=== PATIENT | female | born 1970 | race Caucasian/White ===

== ENCOUNTER 2022-05-10 09:06 | Outpatient (CLI) | payer BC, SELFPAY ==
--- NOTE | 2022-05-10 09:15 | CRLHL7_ITS ---
For Patients: As a result of the Cures Act, medical imaging exams and procedure reports are released immediately into your electronic medical record. You may view this report before your referring provider. If you have questions, please contact your health care provider. BILATERAL SCREENING MAMMOGRAM WITH COMPUTER-AIDED DETECTION AND TOMOSYNTHESIS TECHNIQUE: CC and MLO views were obtained. These mammographic images have been obtained using full-field digital technique. These mammographic images were interpreted with the benefit of computer-aided detection. Breast Tomosynthesis was used in this interpretation. COMPARISON FILM: 02/22/2021, 03/13/2018, 05/05/2016. FINDINGS: There are scattered areas of fibroglandular density IMPRESSION: There is no radiographic evidence for malignancy. ASSESSMENT: BI-RADS Category 1: Negative RECOMMENDATION: Routine screening mammogram in 1 year. A lay language report of this examination will be provided to the patient. Dileep Brannon M.D. Diagnostic/Musculoskeletal Radiologist [email or web address] Manav Transcribed: 4:56 p.tara malik/Dictated by: Dileep Brannon MD @ 05/10/2022 12:03:00 PM (Electronically Signed)
== END 2022-05-10 09:07 | disposition home or self-care (01) ==
LOC: MAMMO 09:08
PROVIDERS: PCP Family Medicine; Visit Provider Family Medicine
DX: Z12.31 Encounter for screening mammogram for malignant neoplasm of breast (principal)
CPT/HCPCS: 77063; 77067

== ENCOUNTER 2022-08-22 09:59 | Day surgery (SDC) | payer BC, SELFPAY ==
[2022-08-22] MEDS: LACTATED RINGERS 1000 ML 1,000 ML 100 ML IV (09:55)
[2022-08-22 10:16] VITALS: BP 116/78; PULSE 89; RESP 16; TEMP 36.6; O2SAT 98; BMI 29.6
[2022-08-22] MEDS: SODIUM CHLORIDE 0.9 % (FLUSH) 10 ML SYRINGE IVF (10:31)
--- NOTE | 2022-08-22 11:30 | CRLHL7_ITS ---
For Patients: As a result of the Cures Act, medical imaging exams and procedure reports are released immediately into your electronic medical record. You may view this report before your referring provider. If you have questions, please contact your health care provider. Indication: LEFT bunion surgery Technique: Three fluoroscopic images of the left forefoot. Fluoroscopic time 9.9 seconds. IMPRESSION: Postop changes to the 2nd and 3rd metatarsal heads and to the 1st metatarsal. Dictated by Randolph Garcia MD @ 08/23/2022 9:26:11 AM (Electronically Signed)
[2022-08-22] MEDS: CEFAZOLIN 2 GM INJ IVP (11:40)
--- NOTE | 2022-08-22 12:07 | W.ANESCHARGE ---
Anesthesia Charges Start Date/Time Anesthesia Start Date: 08/22/22 Anesthesia Start Time: 11:29 Stop Date/Time Anesthesia Stop Date: 08/22/22 Anesthesia Stop Time: 14:11
--- NOTE | 2022-08-22 13:23 | W.ANESCHARGE ---
Anesthesia Charges Start Date/Time Anesthesia Start Date: 08/22/22 Anesthesia Start Time: 11:29 Stop Date/Time Anesthesia Stop Date: 08/22/22 Anesthesia Stop Time: 14:11
[2022-08-22 14:08] VITALS: BP 121/65; PULSE 66; RESP 16; TEMP 36.2; O2SAT 100
[2022-08-22 14:15] VITALS: BP 135/58; PULSE 60; RESP 16; O2SAT 99
[2022-08-22 14:30] VITALS: BP 147/78; PULSE 68; RESP 16; O2SAT 98
[2022-08-22 14:45] VITALS: BP 138/71; PULSE 69; RESP 16; O2SAT 98
--- NOTE | 2022-08-22 14:52 | SUR.PHASEII ---
Pt tolerated water, did not care for food.
--- NOTE | 2022-08-22 14:56 | SUR.PHASEII ---
Physical therapy came to [facility] to provide crutches and crutch training to patient.
--- NOTE | 2022-08-22 15:13 | SUR.PHASEII ---
Pt verbalized understanding of discharge instructions and readiness to be discharged home.
--- NOTE | 2022-08-23 06:34 | P.GSOP_ITS ---
Operative Note Date of procedure: 08/22/22 Pre-op diagnosis: 1. Hallux valgus with bunion deformity left 2. Metatarsalgia left 3. Toe deformity digits 2 and 3 left Post-op diagnosis: 1. Hallux valgus with bunion deformity left 2. Metatarsalgia left 3. Toe deformity digits 2 and 3 left Type of Procedure: 1. Modified Edin bunionectomy left 2. Tiffanie osteotomy 2nd metatarsal left 3. Tiffanie osteotomy 3rd metatarsal left 4. 3rd digit flexor tenotomy left Indications: Patient is having ongoing pain due to bunion deformity and metatarsal pain. There is deformity of her 2nd 3rd toes as well. She has elected to have surgical correction. I reviewed the procedure, recovery, expectations and potential complications. These include but not limited to: Poor wound healing, infection, under correction, over correction, hardware irritation, nonunion, delayed union, malunion, recurrence, potentially future surgery, deep venous thrombosis, pulmonary embolism and possible . All questions answered. Written consent obtained. Procedure Description: After discussing the risks and benefits of the procedure, the patient signed informed consent.? The operative site was marked and the patient was brought to the operating room and placed on the operating table in supine position.? Care was taken to pad the patient's pressure points.?? The patient was then given sedation by anesthesia.?? 30 mL of 0.5% Marcaine plain was injected into the left foot. The operative site was then prepped and draped in the usual sterile fashion.? A time-out was then performed. Left foot exsanguinated the ankle tourniquet inflated to 250 mm Hg. Dorsomedial curvilinear incision was made over the 1st metatarsophalangeal j oint. The incision was carried down through skin subcutaneous tissues. T- shaped joint capsule incision was made. Capsular tissues reflected away from the 1st metatarsal head. Sagittal saw was then used to resect the enlarged medial bony prominence of the 1st metatarsal head. Blunt dissection carried down in the 1st intermetatarsal space and a standard lateral release was performed. Fibular sesamoid was significantly displaced laterally and sitting within the intermetatarsal space. In this position it was not reducible and would block repositioning with her osteotomy. In light of this the fibular sesamoid was excised. Guide pin was placed in the 1st metatarsal head and position checked with C-arm. A long dorsal arm metatarsal osteotomy was then made. Guide pin was removed and the capital fragment was transposed laterally. Once correction was made the osteotomy was fixated with two 3.0 mm cannulated screws. Using a sagittal saw and rotary bur the 1st metatarsal head was samantha deled. C-arm confirmed excellent correction. Wound was irrigated with normal sterile saline. The capsular tissues were revised and closed with 3-0 Vicryl. Subcutaneous tissues reapproximated 4-0 Monocryl and skin closed with 4-0 Prolene. Linear incision was made over the 2nd metatarsophalangeal joint. The incision was carried down through skin subcutaneous tissues. A Z-lengthening was perfo rmed on the extensor tendon. Joint capsule was then incised with the lateral capsule being released completely lateral capsule was also released but will be tightened following osteotomy. A Tiffanie osteotomy was performed and the capital fragment transposed proximally 3 mm. This then fixated with a 3.0 mm twist off screw. Dorsal overhang was resected. Second toe dropped into a much more manageable position. Wound was irrigated normal sterile saline. The medial joint capsule was then tightened with 2-0 FiberWire holding the MPJ reduced into anatomic alignment. The dorsal joint capsule was repaired with 4-0 Vicryl and the lateral capsule left open. Subcutaneous tissues reapproximated with 4-0 Monocryl and skin closed with 4-0 Prolene. Second toe now sat in excellent position. Linear incision was made over the 3rd metatarsophalangeal joint. The incision was carried down through skin subcutaneous tissues. A Z-lengthening was performed on the extensor tendon. Joint capsule was then incised with the lateral capsule being released completely lateral capsule was also released but will be tightened following osteotomy. A Tiffanie osteotomy was performed and the capital fragment transposed proximally 3 mm. This then fixated with a 3.0 mm twist off screw. Dorsal overhang was resected. Third toe dropped into a much more manageable position. Wound was irrigated normal sterile saline. The medial joint capsule was then tightened with 2-0 FiberWire holding the MPJ reduced into anatomic alignment. The dorsal joint capsule was repaired with 4-0 Vicryl and the lateral capsule left open. Subcutaneous tissues reapproximated with 4-0 Monocryl and skin closed with 4-0 Prolene. Third toe now sat in excellent position. Third toe did require flexor tenotomy. [address] [place] blade u sed to make a stab incision plantarly just distal to the PIPJ and flexor tendon transected. Sterile dressings were then applied. Tourniquet was released and normal capillary fill time returned to all digits. ? The patient was then woken and transported to the recovery area in stable condition. The patient tolerated the procedure well. She was placed in well- padded cam boot. She is heel weight-bearing crutch assistance. She is given oxycodone for pain. She will follow up in clinic in 2 days. She will start aspirin therapy tomorrow. Both written and verbal postop instructions given. Findings: Complications: None apparent Implants: Sheridan Fixos 3.0 mm cannulated screws x2, Sheridan twist off screws times 2 Anesthesia: MAC and local Surgeon: Nnamdi Bello DPM Estimated blood loss (mL): 5 Condition: stable Disposition: same day
== END 2022-08-22 15:12 | disposition home or self-care (01) ==
PROVIDERS: PCP Family Medicine; Visit Provider Podiatrist
PROC: (CPT 28292; principal; 2022-08-22 11:30)
PROC: (CPT 28297; 2022-08-22 11:30)
PROC: (CPT 28285; 2022-08-22 11:30)
DX: M20.12 Hallux valgus (acquired), left foot (principal); M21.612 Bunion of left foot; M20.62 Acquired deformities of toe(s), unspecified, left foot; M77.42 Metatarsalgia, left foot
CPT/HCPCS: 28297; 28308; 28313; 1480; 73620; 76000; 97116; 97161; C1713; J0690; J2250; J2405; J2704; J3010; J7120

== ENCOUNTER 2023-06-01 09:14 | Outpatient (CLI) | payer BC, SELFPAY ==
--- NOTE | 2023-06-01 09:15 | CRLHL7_ITS ---
For Patients: As a result of the Century Cures Act, medical imaging exams and procedure reports are released immediately into your electronic medical record. You may view this report before your referring provider. If you have questions, please contact your health care provider. BILATERAL SCREENING MAMMOGRAM WITH COMPUTER-AIDED DETECTION AND TOMOSYNTHESIS TECHNIQUE: CC and MLO views were obtained. These mammographic images have been obtained using full-field digital technique. These mammographic images were interpreted with the benefit of computer-aided detection. Breast Tomosynthesis was used in this interpretation. COMPARISON FILM: 05/10/22, 02/22/21, 03/13/18. FINDINGS: There are scattered areas of fibroglandular density IMPRESSION: There is no radiographic evidence for malignancy. ASSESSMENT: BI-RADS Category 1: Negative RECOMMENDATION: Routine screening mammogram in 1 year. A lay language report of this examination will be provided to the patient. Randolph Garcia M.D. Diagnostic Radiologist [email or web address] IRA/Dictated by: Randolph Garcia MD @ 06/01/2023 11:01:00 AM (Electronically Signed)
== END 2023-06-01 09:15 | disposition home or self-care (01) ==
LOC: MAMMO 09:15
PROVIDERS: PCP Family Medicine; Visit Provider Family Medicine
DX: Z12.31 Encounter for screening mammogram for malignant neoplasm of breast (principal)
CPT/HCPCS: 77063; 77067

== ENCOUNTER 2023-09-18 17:13 | Outpatient (CLI) | payer BC, SELFPAY ==
--- NOTE | 2023-09-18 17:30 | MR_ITS ---
[facility] [address] [facility] [address] Phone:?[phone] Fax:?[phone] Referring Physician Information: Maynor Kohler M.D. [address] [facility] [address] Phone:?[phone] Fax:?[phone] Patient:Geovanna Mayes D.O.B:?1970 Sex:?Female Phone:? [facility] MRN:?[id number] Exam Date:?09/18/2023 EXAM: MRI of the LEFT KNEE, without contrast CLINICAL INFORMATION: Female, 53 years old, with bilateral knee pain. INDICATION: Evaluate for lateral meniscal tear. PRIOR SURGERY: None reported. PLAIN FILMS: Knee radiographs dated 09/12/2023. COMPARISONS: No prior MRIs available. TECHNICAL INFORMATION: Using a 1.5T MR scanner and a localizing surface coil: sagittals: PD, PDFS coronals: PD, STIR axials: PD, T2FS SEDATION: None CONTRAST: None FINDINGS: Knee joint: Effusion: Moderate-marked left knee effusion, with synovitis. Popliteal cyst: Iukbd-vatbco-jxcgm, inferiorly leaking/ruptured Greco cyst (axial T2FS series 4 images 11-30). Loose bodies: None. Subcutaneous and extra-articular soft tissues: Mild anterior subcutaneous soft tissue swelling seen from the patella to the tibial tubercle. Ligaments: ACL: Moderate-marked thickening and abnormal signal throughout the ACL, without ACL tear (sagittal PDFS series 6 image 16). PCL: Intact PCL, without acute or chronic injury. MCL: Intact MCL superficial and deep layers, without injury. LCL: Intact LCL, without injury. Posterolateral corner: No posterolateral corner soft tissue injury. Popliteus, biceps femoris, iliotibial band, popliteofibular ligament and lateral gastrocnemius are intact. Posteromedial corner: No posteromedial corner soft tissue injury. Semimembranosus, pes anserine tendons and posterior oblique ligament are without injury, tendinopathy or bursitis. Extensor mechanism: Patellar tendon: Intact, without tendinopathy. Quadriceps tendon: Intact, without tendinopathy. Retinacula: Medial and lateral retinacula are intact. Fat pads: Unremarkable infrapatellar Hoffa's, quadriceps and prefemoral fat pads. Medial compartment: Medial meniscus: Abnormal signal and irregularity is present throughout the posterior meniscocapsular junction, without discrete tear (sagittal PDFS series 6 images 8-13). No meniscal extrusion or parameniscal cyst. Medial femoral condyle: Broad-based grade II chondromalacia of the central surface with a 5 x 6 mm partial-thickness chondral defect (coronal STIR series 8 image 18 and sagittal PDFS series 6 image 12). Medial tibial plateau: No chondromalacia or osteochondral abnormality. Lateral compartment: Lateral meniscus: No articular surface, meniscosynovial junction or root tear. No displacement, extrusion or parameniscal cyst. Lateral femoral condyle & tibial plateau: Broad-based grade II/III chondromalacia throughout the central, weightbearing aspect of the lateral compartment with an 8 x 8 mm partial-thickness chondral defect of the lateral femoral condyle (sagittal PDFS series 6 image 21 and coronal STIR series 8 image 19). Patellofemoral joint: Patella: Broad-based grade II/III chondromalacia of the lateral facet and median ridge, with minimal marginal osteophytosis. Trochlea: Broad-based grade II/III chondromalacia of the medial facet and central sulcus, with mild marginal osteophytosis. Proximal tibiofibular joint: Unremarkable, without evidence of ligament sprain injury, joint effusion or adjacent marrow edema. Bones: No stress/occult fractures or other marrow edema/pathology. IMPRESSION: 1. 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 2. Mild chondromalacia of the medial femoral condyle with an 8 x 5 mm partial- thickness chondral defect of the medial femoral condyle. 3. Moderate marked knee joint effusion with synovitis and a rzolt-gwltfo-ugtfu, inferiorly leaking/ruptured Greco cyst. 4. Moderate-marked mucinous degeneration of the ACL, without ACL tear. 5. Posterior meniscocapsular junction sprain of the medial meniscus. No medial or lateral meniscal tear. 6. No PCL, MCL, or LCL sprain/tear. BC Electronically signed on 09/19/2023 11:08:00 AM by Adrian Boogie M.D.
--- NOTE | 2023-09-18 18:15 | MR_ITS ---
[facility] [address] [facility] [address] Phone:?[phone] Fax:?[phone] Referring Physician Information: Maynor Kohler M.D. [address] [facility] [address] Phone:?[phone] Fax:?[phone] Patient:Geovanna Mayes D.O.B:?1970 Sex:?Female Phone:? [facility] MRN:?[id number] Exam Date:?09/18/2023 EXAM: MRI of the RIGHT KNEE, without contrast CLINICAL INFORMATION: Female, 53 years old, with bilateral knee pain. INDICATION: Evaluate for lateral meniscal tear. PRIOR SURGERY: None reported. PLAIN FILMS: Knee radiographs dated 09/12/2023. COMPARISONS: No prior MRIs available. TECHNICAL INFORMATION: Using a 1.5T MR scanner and a localizing surface coil: sagittals: PD, PDFS coronals: PD, STIR axials: PD, T2FS SEDATION: None CONTRAST: None FINDINGS: Knee joint: Effusion: Trace-small right knee effusion. Popliteal cyst: Tiny, unruptured popliteal (Greco's) cyst. Loose bodies: Approximately 3 x 4 x 5 mm intra-articular body is present in the posterolateral aspect of the medial compartment (axial T2FS series 4 image 22 and sagittal PDFS series 6 image 18). Subcutaneous and extra-articular soft tissues: Unremarkable. Ligaments: ACL: Intact ACL anteromedial and posterolateral bundles, without sprain or tear. PCL: Intact PCL, without acute or chronic injury. MCL: Intact MCL superficial and deep layers, without injury. LCL: Intact LCL, without injury. Posterolateral corner: No posterolateral corner soft tissue injury. Popliteus, biceps femoris, iliotibial band, popliteofibular ligament and lateral gastrocnemius are intact. Posteromedial corner: No posteromedial corner soft tissue injury. Semimembranosus, pes anserine tendons and posterior oblique ligament are without injury, tendinopathy or bursitis. Extensor mechanism: Patellar tendon: Approximately 1.7 x 0.4 x 1.1 cm corticated osseous density is present along the deep surface of the distal patellar tendon, with mild tendinopathy. No patellar tendon tear. Quadriceps tendon: Intact, without tendinopathy. Retinacula: Medial and lateral retinacula are intact. Fat pads: Unremarkable infrapatellar Hoffa's, quadriceps and prefemoral fat pads. Medial compartment: Medial meniscus: No articular surface, meniscosynovial junction or root tear. No displacement, extrusion or parameniscal cyst. Medial femoral condyle: Approximately 6 x 5 mm partial-thickness chondral defect of the central surface superimposed upon grade II chondromalacia (coronal STIR series 8 image 17 and sagittal PDFS series 6 image 22). Medial tibial plateau: No chondromalacia or osteochondral abnormality. Lateral compartment: Lateral meniscus: No articular surface, meniscosynovial junction or root tear. No displacement, extrusion or parameniscal cyst. Lateral femoral condyle & tibial plateau: Broad-based grade III chondromalacia throughout the central, weightbearing aspect of the lateral compartment, with a 2.3 x 1.0 cm full-thickness chondral defects of the lateral femoral condyle and tibial plateau (sagittal PD series 5 image 11 and coronal STIR series 8 image 19). Mild-moderate reactive osseous changes and mild marginal osteophytosis is present. Patellofemoral joint: Patella: Generalized grade II/III chondromalacia of the patella, with minimal marginal osteophytosis. Trochlea: Generalized mild grade II chondromalacia of the trochlea, without reactive osseous changes. Proximal tibiofibular joint: Unremarkable, without evidence of ligament sprain injury, joint effusion or adjacent marrow edema. Bones: No stress/occult fractures or other marrow edema/pathology. IMPRESSION: 1. Moderate osteoarthritis of the lateral compartment with full-thickness chondral defects of both the lateral femoral condyle & tibial plateau. 2. Mild osteoarthritis of the patellofemoral compartment. 3. Trace-small knee joint effusion with a tiny, unruptured popliteal (Greco's) cyst and 3 x 4 x 5 mm intra-articular body. 4. Chronic sequela of Julieta-Schlatter's disease. 5. Grade II chondromalacia of the medial femoral condyle with a 6 x 5 mm partial-thickness chondral defect. 6. No cruciate or collateral ligament sprain/tear. 7. No medial or lateral meniscal tear. BC Electronically signed on 09/19/2023 10:51:00 AM by Adrian Boogie M.D.
== END 2023-09-18 17:14 | disposition home or self-care (01) ==
LOC: MRI 17:13
PROVIDERS: PCP Family Medicine; Visit Provider Orthopaedic Surgery Sports Medicine
DX: M25.562 Pain in left knee (principal); M17.12 Unilateral primary osteoarthritis, left knee; M94.262 Chondromalacia, left knee; M25.462 Effusion, left knee; M25.561 Pain in right knee; M17.11 Unilateral primary osteoarthritis, right knee; M25.461 Effusion, right knee; M94.261 Chondromalacia, right knee; M23.91 Unspecified internal derangement of right knee
CPT/HCPCS: 73721

== ENCOUNTER 2024-06-18 19:14 | Outpatient (CLI) | payer BC, SELFPAY ==
--- OUTSIDE RECORDS SUMMARY | 2024-06-18 19:17 | XMS_ITS | Clinical Summary ---
Author Organization [facility] Address [address] [place] [address] Care Team Providers Care Manager Delivery Name Role Phone Unavailable Primary Care Provider Unavailabl e Source Comments You are receiving this document as you are listed as the primary care provider,follow-up provider, or the patient has been referred to you for consultation.This is in compliance with the Medicare andMedicaid EHR Incentive Program,which states Providers who transition their patient to another setting of careor provider of care or refers their patient to another provider of care shouldprovide summary care record for each transition of care or referral. On license of [facility] Allergies Active Allergy Reactions Criticality Noted Date Comments Morphine Itching 08/30/2018 Medications Medication Sig Dispensed Refills Start Date End Date Status Meloxicam (MOBIC) 15 MG tablet Take 1 Tablet by mouth daily. 08/30/2018 Active ibuprofen (MOTRIN) 800 MG tablet Take 1 Tablet by mouth daily as needed for Pain. 08/30/2018 Active Multiple Minerals-Vitamins ([id number]-MYE C-D3) TABS 09/21/2018 Active omeprazole (PRILOSEC) 10 MG capsule Take 1 Capsule by mouth daily. Take 1 hour before a meal. 90 Capsule 3 09/21/2018 Active diclofenac (VOLTAREN) 1 % gelIndications:Primary osteoarthritis of both knees,Chronic pain syndrome Apply 4 g to skin 4 times a day. 300 g 11 09/21/2018 Active Active Problems No known active problems Social History Tobacco Use Types Packs/Day Years Used Date Smoking Tobacco: Never Assessed Sex and Gender Information Value Date Recorded Sex Assigned at Not on file Gender Identity Not on file Sexual Orientation Not on file Last Filed Vital Signs Vital Sign Reading Time Taken Comments Blood Pressure 182/95 09/21/2018 10:02 AM CONTINUITY PERSON Pulse 79 09/21/2018 10:02 AM CONTINUITY PERSON Temperature - - Respiratory Rate - - Oxygen Saturation - - Inhaled Oxygen Concentration - - Weight 88.9 kg (196 lb) 09/21/2018 10:02 AM CONTINUITY PERSON Height 164 cm (5' 4.57) 09/21/2018 10:02 AM CONTINUITY PERSON Body Mass Index 33.06 09/21/2018 10:02 AM CONTINUITY PERSON Plan of Treatment Health Maintenance Due Date Last Done Comments Cervical Cancer Screening Due 1970 Colon Cancer Screening Plan Due 1970 Hep C Screening (Preventive Services) 1970 Mammogram 1970 HIV Screening (Preventive Services) 1984 Adult Preventive Visit 01/21/1986 HepB (1) 01/21/1987 Cholesterol 01/21/2013 Zoster/Shingles (1 of 2) 01/21/2018 DTaP/Tdap/Td (2 - Tdap) 03/06/2022 03/06/2012 COVID-19 Vaccine (3 - 2023-2 5 season) 2024 02/12/2021, 2021 Influenza (#1) 2024 HepA Aged Out No longer eligi ble based on patient's age to complete this topic Hib Aged Out No longer eligi ble based on patient's age to complete this topic IPV (Polio) Aged Out No longer eligi ble based on patient's age to complete this topic Infant RSV Aged Out No longer eligi ble based on patient's age to complete this topic MCV4 Aged Out No longer eligi ble based on patient's age to complete this topic Pneumococcal Aged Out No longer eligi ble based on patient's age to complete this topic
--- OUTSIDE RECORDS SUMMARY | 2024-06-18 19:17 | XMS_ITS | Clinical Summary ---
Author Organization [facility] Address [place], [place] [address] Care Team Providers Care It Security Consultant Name Role Phone Staci Henley MD Primary Care Provider Allergies Active Allergy Reactions Criticality Noted Date Comments Morphine Other - Describe In Comment Field 02/22/2012 Feels a burning sensation Medications Medication Sig Dispensed Refills Start Date End Date Status latanoprost (XALATAN) 0.005 % ophthalmic solution Place into both eyes. 2.5 mL 07/28/2022 Active fysanzcy-whv-mwhes acid-vit K (Multi For Her 50 Plus) 400-80 mcg cap Take by mouth. Active amitriptyline (ELAVIL) 10 mg tabletIndications:Fib romyalgia Take 1 Tablet (10 mg) by mouth once daily. 90 Tablet 3 08/24/2023 Active lisinopriL (PRINIVIL; ZESTRIL) 20 mg tabletIndications:Ess ential hypertension Take 1 Tablet (20 mg) by mouth once daily. 90 Tablet 3 08/24/2023 Active venlafaxine (EFFEXOR XR) 150 mg Extended-Release capsuleIndications:Fi bromyalgia Take 1 Capsule (150 mg) by mouth once daily with evening meal. 90 Capsule 3 08/24/2023 Active fluticasone (50 mcg per actuation) nasal solution (FLONASE)Indications: ETD (Eustachian tube dysfunction), bilateral Inhale 2 Sprays into affected nostril(s) once daily. 16 g 2 03/27/2024 Active Active Problems Problem Noted Date Diagnosed Date Chronic pain of both knees 02/16/2023 Overview (02/16/2023): Approximately 2012: had bilateral knee cortisone injections with 6 months of good benefit. Feb 2023: bilateral knee cortisone injections by Dr. Diaz. Essential hypertension 04/05/2021 Lymphocytic colitis 03/18/2021 Overview (03/18/2021): Colonoscopy 03/2021 lymphocytic colitis, repeat in 10 years Fibromyalgia 12/15/2020 Terminal insomnia 12/15/2020 Encounters Date Type Department Care Team Description 03/27/2024 10:30 AM CDT Office Visit [address] [id number] Bria Zee PA Consult (Sensorineural hearing loss (SNHL),) 03/27/2024 Travel from Last 3 Months Immunizations Name Administration Dates Next Due COVID-19 vaccine ([employer] 30mcg/0.3mL) P F, MDV 02/12/2021,2021 Tdap 07/28/2022,03/06/2012 Tuberculin (PPD) 07/22/2014 Zoster (Shingrix-RZV, recombinant) 01/01/2024, Family History Medical History Relation Name Comments Heart attack Brother 1 stent Hypertension Brother 1 Other Brother 2 mva Alzheimer's disease Father Heart Disease Father bypass Hyperlipidemia Father Hypertension Father Hypertension Mother Thyroid Disease Mother Heart attack Other puncle Anesthesia Problem No Family History Relation Name Status Comments Brother 1 Alive Brother 2 Father Mother Alive Other puncle Alive Social History Tobacco Use Types Packs/Day Years Used Date Smoking Tobacco: Never Smokeless Tobacco: Never Tobacco Cessation:Counseling Given: Yes Alcohol Use Standard Drinks/Week Comments No 0 (1 standard drink = 0.6 oz pur e alcohol) PHQ-2 Answer Date Recorded PHQ-2 TOTAL SCORE 0 08/24/2023 Social Connections Answer Date Recorded Frequency of Communication with Friends and Fami ly Not on file 03/27/2024 Financial Resource Strain Answer Date R ecorded Difficulty of Paying Living Expenses 3 03/23/2023 Difficulty of Paying Living Expenses Not on file 03/23/2023 Food Insecurity Answer Date Recorded Worried About Running Out of Food in the Last Ye ar 1 03/23/2023 Transportation Needs Answer Date Record ed Lack of Transportation (Medical) 1 03/23/2023 Housing Stability Answer Date Recorded Unable to Pay for Housing in the Last Year 1 03/23/2023 Sex and Gender Information Value Date Recorded Sex Assigned at Not on file Gender Identity Not on file Sexual Orientation Not on file Obstetrics History Para Term AB IAB SAB Ectopic Multiple Livin g Live Births 1 Date Outcome GA Total Labor Labor/2nd/3rd Weight Sex Type Anes PTL Laure A1 A5 Name Clin 1990 Term M C-Sect ion Jagjit Last Filed Vital Signs Vital Sign Reading Time Taken Comments Blood Pressure 124/84 03/27/2024 10:35 AM CDT Pulse 72 03/27/2024 10:35 AM CDT Temperature 37.6 C (99.7 F) 08/24/2022 11:24 AM [facility] Respiratory Rate 12 03/27/2024 10:35 AM CDT Oxygen Saturation 98% 11/13/2023 3:35 PM CDT Inhaled Oxygen Concentration - - Weight 88.3 kg (194 lb 9.6 oz) 11/13/2023 3:35 P M CDT Height 165.1 cm (5' 5) 08/24/2023 8:11 AM [facility] Body Mass Index 32.38 08/24/2023 8:11 AM [facility] Plan of Treatment Health Maintenance Due Date Last Done Comments COVID-19 vaccine series ( season) 2024 02/12/2021, 2021 Influenza for age 50-64 03/17/2024 Mammogram for age 45-75 06/01/2024 06/01/20 23, 05/10/2022, 02/22/2021, Additional history exists BMI (ht and wt on same day) for age 18+ 08/24/2024 08/24/2023, 01/23/2023, 07/28/2022, Additional history exists Depression screening for age 12+ 08/24/2024 08/24/2023, 12/17/2020, 12/15/2020 Lipids for age 45-75 04/05/2026 04/05/2021, 12/31/2020, 05/12/2015, Additional history exists Colonoscopy through age 75 03/11/203103/11, 03/11/2021, 03/11/2021 Tetanus booster 07/28/2032 07/28/2022, 02/15, 03/06/2012 HIV for age 15-65 Completed 07/28/2022 Hepatitis C screening for age 18-79 Completed 07/28/2022 Tdap Completed 07/28/2022, 03/06/2012 Zoster (shingles) series for age 50+ Completed 01/01/2024, 08/24/2023 Pneumococcal series for age 6-64 Aged Out No longer eligible based on patient's age to complete this topic Procedures Procedure Name Priority Date/Time Associated Diagnosis Comments SCAN-MAMMOGRAPHY REPORT 06/01/2023 12:00 AM [facility] LC HIV-1/O/2, 4TH GENERATION Routine 07/28/2022 10:22 AM [facility] Screening for HIV (human immunodeficiency virus) LC HCV ANTIBODY RFX TO QUANT PCR Routine 07/28/2022 10:22 AM [facility] Need for hepatitis C screening test LIPID PANEL W REFLEX MEASURED LDL Routine 04/05/2021 10:21 AM CDT Screening, lipid COLONOSCOPY DIAGNOSTIC Routine 03/11/2021 8:39 AM CDT Chronic diarrhea from Last 3 Months or Most Recently Relevant to Health Maintenance Results * SCAN-MAMMOGRAPHY REPORT (06/01/2023 12:00 AM [facility]) Anatomical Region Laterality Modality Other Scanner OTHER * LC HCV ANTIBODY RFX TO QUANT PCR (07/28/2022 10:22 AM [facility]) HCV Ab <0.1 0.0 - 0.9 s/co ratio 07/30/2022 3:08 PM [facility] ([facility]) Blood BLOOD SPECIMEN / Unknown Venipuncture / Unknown 07/28/2022 10:22 AM [facility] 07/28/2022 10:25 AM [facility] Narrative [facility] ([facility]) - 07/30/2022 3:08 PM [facility] Performed at: [address] [place] [id number] License Clerk: Robbin Keyes MD, Phone: [phone] Staci Henley MD LABORATORY Performing Organization Address City/[facility]/ZIP Co de Phone Number [facility] ([facility]) [address] [place] [address], * LC HIV-1/O/2, 4TH GENERATION (07/28/2022 10:22 AM [facility]) HIV Scr 4th Gen Non Reactive Non Reactive 07/30/2022 3:08 PM [facility] ([facility]) Comment: HIV Negative HIV-1/HIV-2 antibodies and HIV-1 p24 antigen were NOT detected. There is no laboratory evidence of HIV infection. Blood BLOOD SPECIMEN / Unknown Venipuncture / Unknown 07/28/2022 10:22 AM [facility] 07/28/2022 10:25 AM [facility] Narrative [facility] ([facility]) - 07/30/2022 3:08 PM [facility] Performed at: [address] [place] [id number] License Clerk: Robbin Keyes MD, Phone: [phone] Staci Henley MD LABORATORY Performing Organization Address [facility]/ZIP Co de Phone Number [facility] ([facility]) [address] [place] [address] * LIPID PANEL W REFLEX MEASURED LDL (04/05/2021 10:21 AM CDT) CHOLESTEROL,TOTAL 194 100 - 199 mg/dL 04/05/2021 5:08 PM CDT [facility] TRIGLYCERIDES 79 <150 mg/dL 04/05/2021 5:08 PM CDT [facility] HDL CHOLESTEROL 54 >40 mg/dL 5:08 PM CDT [facility] NON-HDL CHOLESTEROL 140 <145 mg/dl 04/05/2021 5:08 PM CDT [facility] CHOL/HDL RATIO 3.59 <4.50 04/05/2021 5:08 PM CDT [facility] LDL CHOLESTEROL 124 <=130 mg/dL 04/05/2021 5:08 PM CDT [facility] VLDL CHOLESTEROL 16 <=30 mg/dL 04/05/2021 5:08 PM CDT [facility] PROVIDER ORDERED STATUS RANDOM 04/05/2021 5:08 PM CDT [facility] Blood BLOOD SPECIMEN / Unknown Venipuncture / Unknown 04/05/2021 10:21 AM CDT 04/05/2021 10:21 AM CDT Jenny Magana MD CHEMISTR[facility] [address] [place] [address], [place] * COLONOSCOPY (03/11/2021 8:47 AM CDT) 03/11/2021 8:47 AM CDT Narrative Transcriptions Jame Bey MD - 03/11/2021 10:09 AM CDT Patient Name: Suri Younger Procedure Date: 03/11/2021 Gender: Female Date of : 1970 Admit Type: Outpatient Procedure: Colonoscopy Proceduralist: Jame Bey MD , Khloe Roque, RN(Nurse) Referring MD: Jame Bey Indications/Pre-Op Diagnosis: Clinically significant diarrhea ofunexplained origin, This is the patient's firstcolonoscopy Medications: Fentanyl 100 micrograms IV, Midazolam 4 mgIV, The level of sedation administered wasmoderate Procedure Description: The patient had risks, benefits and alternatives explained to andgave informed consent. The patient had a stable cardiopulmonary status and judged an adequate candidate for conscious sedation. The Colonoscope was passed through the anus and advanced to 6 cm into the ileum. The colonoscopy was performed without difficulty. Thepatient tolerated the procedure well. The quality of the bowel preparationwas good. The terminal ileum, ileocecal valve, appendiceal orifice, and rectum were photographed. Complications: No immediate complications. Estimated Blood Loss & Specimen: Estimated blood loss: none. Specimen collected - Yes and sent to Laboratory Findings: The perianal and digital rectal examinations were normal. The terminal ileum appeared normal. The entire examined colon appeared normal on direct and retroflexion views. Biopsies for histology were taken with a cold forceps from the entire colon for evaluation of microscopic colitis. Impressions/Post-Op Diagnosis: - The examined portion of the ileum was normal. - The entire examined colon is normal on direct and retroflexionviews. - No specimens collected. Recommendation: - Patient has a contact number available for emergencies. The signsand symptoms of potential delayed complications were discussed with the patient. Return to normal activities tomorrow. Written discharge instructions were provided to the patient. - Resume previous diet. - Continue present medications. - Await pathology results. - Repeat colonoscopy is recommended. The colonoscopy date will be determined after pathology results from today's exam become available for review. Moderate Sedation: Moderate (conscious) sedation was administered by the endoscopy nurse and supervised by the endoscopist. The following parameters were monitored: oxygen saturation, heart rate, respiratory rate, blood pressure, adequacy of pulmonary ventilation and reponse to care. Please refer to the patient's medical record flowsheets and nursing notes for moderate sedation details. Total physician intraservice time was 21 minutes. Jame Bey MD 03/11/2021 10:09:22 AM This report has been signed electronically. Note Initiated On: 03/11/2021 8:47 AM Procedure Code(s): --- Professional --- 92061, Colonoscopy, flexible; with biopsy, single or multiple Diagnosis Code(s): --- Professional --- R19.7, Diarrhea, unspecified CPT copyright 2020 [employer]. All rights reserved. The codes documented in this report are preliminary and upon paint supervisor reviewmay be revised to meet current compliance requirements. Scope In: 9:41:32 AM Scope Withdrawal Time 0 hours 8 minutes 32 seconds Scope Out: 10:01:11 AM Jame Bey MD PROCEDURE ORD from Last 3 Months or Most Recently Relevant to Health Maintenance Care Teams It Security Consultant Relationship Specialty Start Date End Date Staci Henley MD [address] [place] [address] PCP - General Family Practice 09/16/21
--- NOTE | 2024-06-18 19:20 | CRLHL7_ITS ---
For Patients: As a result of the Century Cures Act, medical imaging exams and procedure reports are released immediately into your electronic medical record. You may view this report before your referring provider. If you have questions, please contact your health care provider. BILATERAL DIGITAL SCREENING MAMMOGRAM WITH COMPUTER-AIDED DETECTION AND TOMOSYNTHESIS CLINICAL HISTORY: Routine screening exam. COMPARISON: 06/01/23, 05/10/22, 02/22/21. TECHNIQUE: Digital mammogram in CC and MLO projections including computer-aided detection (CAD). Tomosynthesis was used in this interpretation. BREAST COMPOSITION: There are scattered areas of fibroglandular density. FINDINGS: RIGHT Breast: No suspicious findings. LEFT Breast: Focal asymmetric density lateral LEFT breast 9 cm from the nipple. IMPRESSION: LEFT breast asymmetry/mass. RECOMMENDATIONS: Additional mammographic views of the LEFT breast including 3D spot compression CC/MLO. LEFT breast ultrasound may also be required. The [facility] will contact the patient for follow-up. A lay language report of this examination will be provided to the patient. BI-RADS Category 0: Incomplete: Need Additional Imaging Evaluation Dictated by Randolph Garcia MD @ 06/19/2024 12:51:01 PM /sp SP/Dictated by: Randolph Garcia MD @ 06/19/2024 12:51:00 PM (Electronically Signed)
== END 2024-06-18 19:15 | disposition home or self-care (01) ==
LOC: MAMMO 19:16
PROVIDERS: PCP Family Medicine; Visit Provider Family Medicine
DX: Z12.31 Encounter for screening mammogram for malignant neoplasm of breast (principal); N63.20 Unspecified lump in the left breast, unspecified quadrant
CPT/HCPCS: 77063; 77067

== ENCOUNTER 2024-07-02 10:29 | Outpatient (CLI) | payer BC, SELFPAY ==
--- NOTE | 2024-07-02 10:45 | CRLHL7_ITS ---
For Patients: As a result of the Cures Act, medical imaging exams and procedure reports are released immediately into your electronic medical record. You may view this report before your referring provider. If you have questions, please contact your health care provider. LEFT DIAGNOSTIC MAMMOGRAM WITH COMPUTER-AIDED DETECTION AND TOMOSYNTHESIS LEFT BREAST ULTRASOUND CLINICAL HISTORY: LEFT breast mass/asymmetry. COMPARISON: 06/18/2024. TECHNIQUE: Digital LEFT mammogram in two projections with computer-aided detection. Real-time ultrasound imaging of LEFT breast with imaging documentation. Scanning was performed by both the technologist and the radiologist. BREAST COMPOSITION: There are scattered areas of fibroglandular density. FINDINGS: 3D spot compression CC/MLO LEFT breast mammogram images submitted. Decreased conspicuity of previously noted asymmetric density. No architectural distortion. No suspicious calcifications. Targeted LEFT breast ultrasound performed at 4 o`clock 9 cm from the nipple. Normal island of fibroglandular tissue is present. No suspicious mass or fibrocystic change. IMPRESSION: No evidence of malignancy. RECOMMENDATIONS: Routine BILATERAL screening mammography. A lay language report of this examination will be provided to the patient. BI-RADS Category 2: Benign Dictated by Randolph Garcia MD @ 07/02/2024 11:38:42 AM /sp SP/Dictated by: Randolph Garcia MD @ 07/02/2024 11:38:00 AM (Electronically Signed)
--- NOTE | 2024-07-02 11:15 | CRLHL7_ITS ---
For Patients: As a result of the Century Cures Act, medical imaging exams and procedure reports are released immediately into your electronic medical record. You may view this report before your referring provider. If you have questions, please contact your health care provider. PLEASE SEE LEFT BREAST DIAGNOSTIC MAMMOGRAM PERFORMED SAME DAY. CRL:sp SP/Dictated by: Randolph Garcia MD @ 07/02/2024 11:38:00 AM (Electronically Signed)
== END 2024-07-02 10:30 | disposition home or self-care (01) ==
LOC: MAMMO 10:29
PROVIDERS: PCP Family Medicine; Visit Provider Family Medicine
DX: N63.20 Unspecified lump in the left breast, unspecified quadrant (principal); R92.8 Other abnormal and inconclusive findings on diagnostic imaging of breast
CPT/HCPCS: 76642; 77065; G0279